=== PATIENT | male | born 1975 | race Caucasian/White ===

== ENCOUNTER 2018-02-07 11:14 | Outpatient (CLI) | payer OTHER | END 2018-02-07 11:15 | disposition home or self-care (01) | LOC: DI 11:14 | PROVIDERS: ATTEND Family Medicine | DX: Q21.1 Atrial septal defect (principal) | CPT/HCPCS: 93306 ==

== ENCOUNTER 2019-05-10 12:04 | Outpatient (CLI) | payer OTHER | END 2019-05-10 12:05 | disposition home or self-care (01) | LOC: DI 12:04 | PROVIDERS: ATTEND Student in an Organized Health Care Education/Training Program | DX: Q21.1 Atrial septal defect (principal); I77.810 Thoracic aortic ectasia; I51.7 Cardiomegaly | CPT/HCPCS: 93306 ==

== ENCOUNTER 2024-02-15 13:44 | Outpatient (CLI) | payer OTHER | END 2024-02-15 13:45 | disposition home or self-care (01) | LOC: DI 13:44 | DX: Q21.10 Atrial septal defect, unspecified (principal); I77.810 Thoracic aortic ectasia | CPT/HCPCS: 93307 ==